=== PATIENT | female | born 1965 | race Caucasian/White ===

== ENCOUNTER 2019-05-18 11:50 | Outpatient (CLI) | payer OTHER, SELFPAY ==
--- NOTE | ~2019-05-18 | XR_ITS ---
EXAMINATION: XR foot RT min 3V DATE: 05/18/2019 12:13 INDICATION: Right foot bump and pain. TECHNIQUE: 4 views of right foot were obtained. COMPARISON: None. FINDINGS: Bone alignment is normal. No fracture. There is severe osteoarthritis of first tarsometatar sean joint and third proximal interphalangeal joint. There is mild osteoarthritis of many of the inter phalangeal joints and midfoot joints and first and second metatarsophalangeal joints. There are enthe sophytes at the posterior and plantar aspects of calcaneal tuberosity. IMPRESSION: 1. Polyarticular osteoarthritis. Reviewed, dictated and finalized at location A. TANKER CAPTAIN
== END 2019-05-18 11:51 | disposition home or self-care (01) ==
LOC: ANHIMG 11:56
PROVIDERS: PCP Family Medicine; Visit Provider Family Medicine
DX: M19.071 Primary osteoarthritis, right ankle and foot (principal)
CPT/HCPCS: 73630

== ENCOUNTER 2019-07-31 05:56 | Outpatient (CLI) | payer OTHER, SELFPAY ==
[2019-07-31 16:38] LABS: SARS-CoV-2 RNA PCR Negative
== END 2019-07-31 05:57 | disposition home or self-care (01) ==
LOC: ANHCOVIDDT 05:56
PROVIDERS: PCP Family Medicine; Visit Provider Internal Medicine Gastroenterology
DX: Z01.818 Encounter for other preprocedural examination (principal); Z11.59 Encounter for screening for other viral diseases
CPT/HCPCS: 87635; C9803; U0003

== ENCOUNTER 2019-08-02 00:45 | Day surgery (SDC) | payer OTHER, SELFPAY ==
[2019-07-29 12:25] VITALS: BMI 28.8
[2019-08-02 08:11] VITALS: BP 134/90; PULSE 72; RESP 16; TEMP 37.1; O2SAT 98
[2019-08-02] MEDS: LACTATED RINGERS 1,000 ML 150 ML IV CONT (08:23)
--- NOTE | 2019-08-02 09:00 | WPDANESEPPF ---
Anes - Initial Pre Proc Eval Procedure: Operation Date: 08/02/19 09:30 Proposed Procedures p Colonoscopy - Ayan Miguel MD Date/Time: 08/02/19 09:00 Surgeon: Ayan Miguel MD Pre Op Diagnosis: Blood In Stool Patient Data Age: 53 Gender: F Height: 5 ft 4 in Weight: 72.9 kg Last Vital Signs Temp 37.1 C 08/02/19 08:11 Pulse 72 08/02/19 08:11 Resp 16 08/02/19 08:11 BP 134/90 08/02/19 08:11 Pulse Ox 98 08/02/19 08:11 Allergies Allergy/AdvReac Type Severity Reaction Status Date / Time codeine Allergy Unknown Nausea Verified 08/02/19 08:10 Home Medications Medication Instructions Recorded Confirmed Type nebivolol 5 mg tablet 5 mg PO DAILY #90 tablet 04/01/19 08/02/19 Rx pantoprazole 40 mg tablet,delayed 40 mg PO QAM #90 tablet 05/09/19 08/02/19 Rx release levothyroxine 137 mcg tablet 137 mcg PO DAILY 05/14/19 08/02/19 History celecoxib 200 mg capsule 200 mg PO BID #60 cap 05/16/19 08/02/19 Rx gabapentin 300 mg capsule 300 mg PO TID #90 cap 05/16/19 08/02/19 Rx albuterol sulfate 2.5 mg INHALATION Q4-6H PRN #180 ml 05/21/19 08/02/19 Rx calcium carbonate [Calcium 600] 600 mg PO BID 07/29/19 08/02/19 History cyanocobalamin (vitamin B-12) 500 mcg PO DAILY 07/29/19 08/02/19 History [Vitamin B-12] garlic 1,000 mg PO DAILY 07/29/19 08/02/19 History lactobacillus combination no.8 3,000 mmu cells PO DAILY 07/29/19 08/02/19 History [Adult Probiotic] melatonin 5 mg PO HS PRN 07/29/19 08/02/19 History multivitamin [Daily Multi-Vitamin] 1 tablet PO DAILY 07/29/19 08/02/19 History phentermine 37.5 mg PO DAILY 07/29/19 08/02/19 History zolpidem 5 mg PO ONCE 07/29/19 08/02/19 History Patient hx anesthesia problems: none Family hx anesthesia problems: none PMFSH Past Medical History Medical History Foot arthropathy Family History Family History Other Diabetes mellitus Family history of Alzheimer's disease Family history of chronic obstructive pulmonary disease Family history of malignant neoplasm of bone Family history of malignant neoplasm of breast Hypertension Social History Social History Smoking status: Never smoker Alcohol intake: never Anes - Eval Final PreProcedure Day of Procedure 08/02/19 09:00 Patient weight: overweight Heart: regular rate and rhythm Airway: Mallampati scale class II Neurological: alert and oriented Last oral intake: >/= 8 hours ASA classification: III Emergent: no Anesthetic plan: proceed Anesthesia type and monitoring: general GIVS and standard monitoring Informed Consent: The patient's anesthetic plan and its attendant risks and benefits were discussed with the patient/family/POA. Questions were solicited and answers provided to the satisfaction of the patient/family/POA.
--- NOTE | 2019-08-02 09:15 | P.HP_ITS ---
History of Present Illness History of Present Illness Consent: Risks, benefits, and alternatives have been discussed and questions answered. Patient agrees to proceed with procedure. Chief complaint: Blood In Stool Narrative: Giovana Woods is a 53 year old female Who has been passing blood in her stools for the past 6 weeks. Initially she was constipated, but now using stool softeners and or MiraLax, she has soft stools but still sees blood. [facility] Past Medical History Medical History Foot arthropathy Family History Family History Other Diabetes mellitus Family history of Alzheimer's disease Family history of chronic obstructive pulmonary disease Family history of malignant neoplasm of bone Family history of malignant neoplasm of breast Hypertension Social History Social History Smoking status: Never smoker Alcohol intake: never Meds Home Medications and Allergies Home Medications Medication Instructions Recorded Confirmed Type nebivolol 5 mg tablet 5 mg PO DAILY #90 tablet 04/01/19 08/02/19 Rx pantoprazole 40 mg tablet,delayed 40 mg PO QAM #90 tablet 05/09/19 08/02/19 Rx release levothyroxine 137 mcg tablet 137 mcg PO DAILY 05/14/19 08/02/19 History celecoxib 200 mg capsule 200 mg PO BID #60 cap 05/16/19 08/02/19 Rx gabapentin 300 mg capsule 300 mg PO TID #90 cap 05/16/19 08/02/19 Rx albuterol sulfate 2.5 mg INHALATION Q4-6H PRN #180 ml 05/21/19 08/02/19 Rx calcium carbonate [Calcium 600] 600 mg PO BID 07/29/19 08/02/19 History cyanocobalamin (vitamin B-12) 500 mcg PO DAILY 07/29/19 08/02/19 History [Vitamin B-12] garlic 1,000 mg PO DAILY 07/29/19 08/02/19 History lactobacillus combination no.8 3,000 mmu cells PO DAILY 07/29/19 08/02/19 History [Adult Probiotic] melatonin 5 mg PO HS PRN 07/29/19 08/02/19 History multivitamin [Daily Multi-Vitamin] 1 tablet PO DAILY 07/29/19 08/02/19 History phentermine 37.5 mg PO DAILY 07/29/19 08/02/19 History zolpidem 5 mg PO ONCE 07/29/19 08/02/19 History Allergies Allergy/AdvReac Type Severity Reaction Status Date / Time codeine Allergy Unknown Nausea Verified 08/02/19 08:10 Vital Signs Vital Signs - 24 hr 08/02/19 08:11 Temperature 37.1 C Pulse Rate 72 Respiratory Rate 16 Blood Pressure 134/90 Pulse Oximetry 98 Exam Resp: Auscultation: clear to auscultation bilaterally Cardio: Rate: regular rate Rhythm: regular rhythm GI: GI Palp: Yes Soft to palpation and No Tenderness to palpation present (GI) Assessment and Plan Assessment and plan (1) Blood in stool: Code(s): K92.1 - Melena Status: Acute Assessment and Plan: Colonoscopy with possible biopsy or polypectomy or cautery or injection of substances.
[2019-08-02 09:46] VITALS: BP 122/73; PULSE 70; RESP 22; O2SAT 99
[2019-08-02 09:56] VITALS: BP 102/65; PULSE 60; RESP 22; O2SAT 100
[2019-08-02 10:06] VITALS: BP 107/67; PULSE 60; RESP 22; O2SAT 100
== END 2019-08-02 10:30 | disposition home or self-care (01) ==
PROVIDERS: PCP Family Medicine; Visit Provider Internal Medicine Gastroenterology
PROC: 0DJD8ZZ Inspection of Lower Intestinal Tract, Via Natural or Artificial Opening Endoscopic (ICD-10-PCS; CPT 45378; principal; 2019-08-02 09:30)
DX: K62.5 Hemorrhage of anus and rectum (principal); K64.8 Other hemorrhoids
CPT/HCPCS: 45378; J2704; J7120

== ENCOUNTER 2019-08-13 14:54 | Outpatient (CLI) | payer OTHER, SELFPAY ==
[2019-08-13 16:14] LABS: Thyroid Stimulating Hormone < 0.015 uIU/mL (0.465-4.680)
[2019-08-13 19:28] LABS: Free T4 Free Thyroxine 2.11 ng/mL (0.78-2.19); Vitamin D 25 Hydroxy 84.7 ng/mL
== END 2019-08-13 14:55 | disposition home or self-care (01) ==
PROVIDERS: PCP Family Medicine; Visit Provider Internal Medicine Endocrinology, Diabetes & Metabolism
DX: E03.9 Hypothyroidism, unspecified (principal); R79.89 Other specified abnormal findings of blood chemistry
CPT/HCPCS: 36415; 82306; 84439; 84443

== ENCOUNTER 2019-11-01 08:47 | Outpatient (CLI) | payer OTHER, SELFPAY ==
[2019-11-01 09:20] LABS: Hematocrit 40.8 % (37.0-47.0); Hemoglobin 13.2 g/dL (12.0-15.0); Mean Corpuscular HGB Conc 32.4 g/dl (32-36); Mean Corpuscular Hemoglobin 29.5 pg (26-34); Mean Corpuscular Volume 91.3 fl (80-100); Mean Platelet Volume 10.9 fl (7.4-10.4); Platelet Count Result 226 k/mm3 (150-375); Red Blood Count 4.47 M/mm3 (4.2-5.4); White Blood Count 6.2 K/mm3 (4.5-10.0)
[2019-11-01 09:32] LABS: Alanine Aminotransferase 14 U/L (4-35); Albumin Level 3.8 g/dL (3.5-5.1); Alkaline Phosphatase 88 U/L (38-126); Anion Gap 5 mmol/L (8-16); Aspartate Amino Transferase 23 U/L (14-36); Bilirubin,Total 0.5 mg/dL (0.2-1.3); Blood Urea Nitrogen 12 mg/dL (7-17); Calcium 8.8 mg/dL (8.4-10.2); Carbon Dioxide 28 mmol/L (22-30); Chloride 106 mmol/L (98-107); Cholesterol 179 mg/dL (0-200); Estimated Glomerular Filt Rate > 60; Glucose 93 mg/dL (65-105); HDL Direct 49 mg/dL; Potassium 4.2 mmol/L (3.4-5.0); Sodium 139 mmol/L (137-145); Triglycerides 44 mg/dL (<150)
[2019-11-01 09:42] LABS: LDL Cholesterol Direct 98 mg/dL
== END 2019-11-01 08:48 | disposition home or self-care (01) ==
PROVIDERS: PCP Family Medicine; Visit Provider Physician Assistant Medical
DX: I10 Essential (primary) hypertension (principal); Z13.220 Encounter for screening for lipoid disorders
CPT/HCPCS: 36415; 80053; 80061; 85027

== ENCOUNTER 2019-12-28 11:16 | Outpatient (CLI) | payer OTHER, SELFPAY ==
[2019-12-28 12:25] LABS: Alanine Aminotransferase 13 U/L (4-35)
== END 2019-12-28 11:17 | disposition home or self-care (01) ==
PROVIDERS: PCP Family Medicine; Visit Provider Physician Assistant Medical
DX: B35.1 Tinea unguium (principal)
CPT/HCPCS: 36415; 84460

== ENCOUNTER 2020-01-23 06:51 | Outpatient (NON) | payer OTHER, SELFPAY ==
[2020-01-23 17:23] LABS: SARS-CoV-2 RNA PCR Positive
== END 2020-01-23 06:52 ==
LOC: ANHCOVIDDT 07:00
PROVIDERS: PCP Family Medicine; Visit Provider Nurse Practitioner Family
DX: U07.1 COVID-19 (principal)
CPT/HCPCS: 87635; C9803; U0003

== ENCOUNTER 2020-02-17 14:18 | Outpatient (CLI) | payer OTHER, SELFPAY ==
--- NOTE | ~2020-02-17 | XR_ITS ---
EXAMINATION: XR chest 2V EXAM DATE: 02/17/2020 14:17 INDICATION: U07.1 - COVID-19. Cough and shortness of breath with exertion. TECHNIQUE: Frontal and lateral projections of the chest obtained and reviewed. Comparison is made to prior examination from 03/25/2016. FINDINGS: The lungs are clear. There are no pleural effusions. The cardiomediastinal silhouette is within normal limits. There is no pneumothorax suspected. Mild thoracic spondylosis. IMPRESSION: No acute cardiopulmonary findings. Reviewed, dictated and finalized at location A. K CATCHER
[2020-02-17 14:59] LABS: Basophils Percent Auto 0.8 % (0.2-1.2); Eosinophils Absolute Auto 0.1 K/mm3 (0-0.3); Eosinophils Percent Auto 2.3 % (0-4.4); Hematocrit 37.9 % (37.0-47.0); Hemoglobin 12.1 g/dL (12.0-15.0); Immature Granulocyte Absolute 0.02 K/mm3 (0.00-0.031); Immature Granulocyte Percent A 0.4 % (0-0.5); Lymphocytes Absolute Auto 1.97 K/mm3 (0.9-3.2); Lymphocytes Percent Auto 38.2 % (18.3-44.2); Mean Corpuscular HGB Conc 31.9 g/dl (32-36); Mean Corpuscular Hemoglobin 29.5 pg (26-34); Mean Corpuscular Volume 92.4 fl (80-100); Mean Platelet Volume 10.8 fl (7.4-10.4); Monocytes Absolute Auto 0.5 K/mm3 (0.1-0.6); Monocytes Percent Auto 10.5 % (2.6-8.5); Neutrophils Absolute Auto 2.5 K/mm3 (1.3-6.7); Neutrophils Percent Auto 47.8 % (45.5-73.1); Platelet Count Result 231 k/mm3 (150-375); Red Cell Distribution Width 13.6 % (11.5-14.5); White Blood Count 5.2 K/mm3 (4.5-10.0)
[2020-02-17 15:08] LABS: Potassium 4.5 mmol/L (3.4-5.0)
[2020-02-17 15:10] LABS: D Dimer 0.38 ug/mL (<0.48)
[2020-02-17 15:20] LABS: Anion Gap 4 mmol/L (8-16); Blood Urea Nitrogen 13 mg/dL (7-17); CRP < 0.5 mg/dL (<1.0); Carbon Dioxide 30 mmol/L (22-30); Chloride 106 mmol/L (98-107); Estimated Glomerular Filt Rate > 60; Glucose 87 mg/dL (65-105); Lactate Dehydrogenase 445 U/L (313-618); Sodium 140 mmol/L (137-145)
== END 2020-02-17 14:19 | disposition home or self-care (01) ==
PROVIDERS: PCP Family Medicine; Visit Provider Physician Assistant Medical
DX: R05 Cough (principal); R06.02 Shortness of breath
CPT/HCPCS: 36415; 71046; 80048; 83615; 85025; 85380; 86140

== ENCOUNTER 2020-03-06 14:46 | Outpatient (CLI) | payer OTHER, SELFPAY ==
[2020-03-06 16:06] LABS: Free T4 Free Thyroxine 1.13 ng/mL (0.78-2.19)
[2020-03-10 13:50] LABS: Triiodothyronine T3 Free 1.9 pg/mL (2.3-4.2)
== END 2020-03-06 14:47 | disposition home or self-care (01) ==
PROVIDERS: PCP Family Medicine; Visit Provider Internal Medicine Endocrinology, Diabetes & Metabolism
DX: E03.9 Hypothyroidism, unspecified (principal)
CPT/HCPCS: 36415; 84439; 84443; 84481

== ENCOUNTER 2020-05-23 07:39 | Outpatient (CLI) | payer OTHER, SELFPAY ==
[2020-05-23 09:02] LABS: Alanine Aminotransferase 14 U/L (4-35); Alkaline Phosphatase 74 U/L (38-126); Aspartate Amino Transferase 24 U/L (14-36); Bilirubin,Total 0.4 mg/dL (0.2-1.3)
== END 2020-05-23 07:40 | disposition home or self-care (01) ==
PROVIDERS: PCP Family Medicine
DX: B35.1 Tinea unguium (principal)
CPT/HCPCS: 36415; 80076

== ENCOUNTER 2020-08-22 08:27 | Outpatient (CLI) | payer OTHER, SELFPAY ==
[2020-08-22 10:38] LABS: Free T4 Free Thyroxine 1.45 ng/mL (0.78-2.19); Vitamin D 25 Hydroxy 89.6 ng/mL
[2020-08-27 21:09] LABS: Triiodothyronine T3 Free 2.7 pg/mL (2.3-4.2)
== END 2020-08-22 08:28 | disposition home or self-care (01) ==
PROVIDERS: PCP Family Medicine; Visit Provider Internal Medicine Endocrinology, Diabetes & Metabolism
DX: E03.9 Hypothyroidism, unspecified (principal); R79.89 Other specified abnormal findings of blood chemistry
CPT/HCPCS: 36415; 82306; 84439; 84443; 84481

== ENCOUNTER 2021-02-03 15:36 | Outpatient (CLI) | payer OTHER, SELFPAY ==
--- NOTE | ~2021-02-03 | XR_ITS ---
EXAMINATION: XR lumbar spine 2-3V DATE: 02/03/2021 16:02 INDICATION: Lumbago with sciatica and 1 month of pain radiating to the right hip and leg TECHNIQUE: Anteroposterior and lateral views of the lumbar spine, and cone-down lateral view of the l umbosacral junction were obtained. COMPARISON: None. FINDINGS: 6 mm anterolisthesis L4 on L5. Vertebral body heights are normal. Mild disc height loss at L1-L2 thro ugh L4-L5. Moderate to severe lower lumbar facet osteoarthritis most prominent at L4-L5. Mild bilater al sacroiliac osteoarthritis. Surgical clips in the right hemipelvis. The visualized lung bases are c lear. IMPRESSION: 1. Lumbar spondylosis most notable for 6 mm anterolisthesis L4 on L5 with severe bilateral facet oste oarthritis. Reviewed, dictated and finalized at location A. IGN COLLECTION CLERK IMPRESSION: 1. Lumbar spondylosis most notable for 6 mm anterolisthesis L4 on L5 with sever e bilateral facet osteoarthritis.
== END 2021-02-03 15:37 | disposition home or self-care (01) ==
LOC: ANHIMG 15:39
PROVIDERS: PCP Family Medicine; Visit Provider Nurse Practitioner Family
DX: M54.41 Lumbago with sciatica, right side (principal); M47.816 Spondylosis without myelopathy or radiculopathy, lumbar region
CPT/HCPCS: 72100

== ENCOUNTER → 2021-03-26 07:58 | Outpatient (CLI) | payer OTHER, SELFPAY ==
--- NOTE | ~2021-03-26 | MR_ITS ---
EXAMINATION: MR lumbar spine wo con DATE: 03/26/2021 08:53 INDICATION: Lumbago with right-sided sciatica TECHNIQUE: Magnetic resonance imaging (MRI) of the lumbar spine was performed without intravenous con trast. Sequences included sagittal T2-weighted FSE, sagittal T2-weighted FS FSE, sagittal T1-weighted FSE, and axial T2-weighted FSE. COMPARISON: Lumbar spine radiographs dated 02/03/2021 FINDINGS: 4 mm anterolisthesis L4 on L5. Vertebral body heights are normal. Normal marrow signal. Moderate dis c height loss at L1-L2, mild to moderate disc height loss at 5 and mild disc height loss at T10-T11, L2-L3 and L3-L4. The conus medullaris terminates at L3. No thickening of the following terminally. Th ere is normal signal in the caudal spinal cord. Paravertebral soft tissues are unremarkable. The foll owing disc levels are specifically discussed: T12-L1: The disc does not extend beyond the endplate margin. There is mild bilateral facet joint oste oarthritis. There is no neural foraminal stenosis. There is no central canal stenosis. L1-L2: Disc is bulging with annular fissure. There is mild left and moderate right facet joint osteoa rthritis. There is mild bilateral neural foraminal stenosis. There is mild central canal stenosis. L2-L3: Disc is bulging. There is mild bilateral facet joint osteoarthritis. There is mild bilateral n eural foraminal stenosis. There is mild central canal stenosis. L3-L4: Disc is mildly bulging. There is moderate bilateral facet joint osteoarthritis. There is mild bilateral neural foraminal stenosis. There is minimal central canal stenosis. L4-L5: Disc is bulging. There is severe bilateral facet joint osteoarthritis. There is mild bilateral neural foraminal stenosis. There is mild central canal stenosis. L5-S1: The disc does not extend beyond the endplate margin. There is moderate bilateral facet joint o steoarthritis. There is mild bilateral neural foraminal stenosis. There is no central canal stenosis. IMPRESSION: 1. Mild to moderate lumbar spondylosis and 4 mm anterolisthesis L4 on L5. Reviewed, dictated and finalized at location B. RNS PROCESSOR
--- NOTE | ~2021-03-26 | XR_ITS ---
EXAMINATION: XR hip RT min 2V DATE: 03/26/2021 09:14 INDICATION: Right hip pain. TECHNIQUE: 2 views of right hip were obtained. COMPARISON: None. FINDINGS: Bone alignment is normal. No fracture. There is mild right hip osteoarthritis. Osteitis pub is is noted. Surgical clips overlie the sacrum. IMPRESSION: 1. Mild right hip osteoarthritis. Reviewed, dictated and finalized at location A. RACTS OFFICER
== END ==
PROVIDERS: PCP Family Medicine; Visit Provider Nurse Practitioner Family
DX: M47.815 Spondylosis without myelopathy or radiculopathy, thoracolumbar region (principal); M48.05 Spinal stenosis, thoracolumbar region; M47.817 Spondylosis without myelopathy or radiculopathy, lumbosacral region; M48.07 Spinal stenosis, lumbosacral region; M16.11 Unilateral primary osteoarthritis, right hip
CPT/HCPCS: 72148; 73502

== ENCOUNTER 2021-09-18 07:09 | Outpatient (CLI) | payer OTHER, SELFPAY ==
[2021-09-18 07:54] LABS: Hematocrit 41.6 % (37.0-47.0); Hemoglobin 13.3 g/dL (12.0-15.0); Mean Corpuscular Hemoglobin 28.9 pg (26-34); Mean Corpuscular Volume 90.2 fl (80-100); Mean Platelet Volume 10.3 fl (7.4-10.4); Platelet Count Result 245 k/mm3 (150-375); Red Blood Count 4.61 M/mm3 (4.2-5.4); Red Cell Distribution Width 13.3 % (11.5-14.5); White Blood Count 6.2 K/mm3 (4.5-10.0)
[2021-09-18 08:07] LABS: Alanine Aminotransferase 19 U/L (6-35); Albumin Level 4.2 g/dL (3.5-5.1); Alkaline Phosphatase 129 U/L (38-126); Anion Gap 4 mmol/L (8-16); Aspartate Amino Transferase 27 U/L (14-36); Bilirubin,Total 0.5 mg/dL (0.2-1.3); Blood Urea Nitrogen 13 mg/dL (7-17); Carbon Dioxide 29 mmol/L (22-30); Chloride 107 mmol/L (98-107); Cholesterol 215 mg/dL (0-200); Estimated Glomerular Filt Rate > 60; Glucose 96 mg/dL (65-110); HDL Direct 61 mg/dL; Potassium 4.3 mmol/L (3.4-5.0); Sodium 140 mmol/L (137-145); Triglycerides 38 mg/dL (<150)
[2021-09-18 08:18] LABS: LDL Cholesterol Direct 102 mg/dL
[2021-09-18 08:37] LABS: Thyroid Stimulating Hormone 0.115 uIU/mL (0.465-4.680)
[2021-09-18 09:28] LABS: Free T4 Free Thyroxine 1.84 ng/mL (0.78-2.19)
== END 2021-09-18 07:10 | disposition home or self-care (01) ==
LOC: ANHLAB 07:11
PROVIDERS: PCP Family Medicine; Visit Provider Nurse Practitioner Family
DX: E55.9 Vitamin D deficiency, unspecified (principal); R23.8 Other skin changes; I10 Essential (primary) hypertension; Z13.1 Encounter for screening for diabetes mellitus; Z13.220 Encounter for screening for lipoid disorders; E03.9 Hypothyroidism, unspecified
CPT/HCPCS: 36415; 80053; 80061; 82306; 84439; 84443; 85027

== ENCOUNTER → 2021-10-25 11:21 | Outpatient (CLI) | payer OTHER, SELFPAY ==
--- NOTE | ~2021-10-25 | XR_ITS ---
XR ribs BI 3V w CXR 2V DATE: 10/25/2021 12:13 INDICATION: Cough. Mid back pain. No injury. TECHNIQUE: PA and lateral views. 3 views of right ribs. 3 views of left ribs. COMPARISON: 02/17/2020 PA and lateral chest FINDINGS: Normal heart size. Mild aortic tortuosity. No hilar or mediastinal enlargement. No pulmonary infiltrate or consolidation, pleural effusion or pulmonary vascular congestion or pneumo thorax is detected. No left or right rib fracture is detected. IMPRESSION: No detected right or left rib fracture No active cardiopulmonary disease Reviewed, dictated and finalized at location B.
--- NOTE | ~2021-10-25 | XR_ITS ---
XR thoracic spine 3V DATE: 10/25/2021 12:13 INDICATION: Back pain TECHNIQUE: AP, lateral, swimmer views COMPARISON: None FINDINGS: Osteopenia. There is degenerative spurring in the mid and lower thoracic spine primarily. N ormal alignment of the thoracic spine. No fracture or bone destruction is evident. The thoracic pedic les are intact. No paraspinal soft tissue thickening. IMPRESSION: Osteopenia Degenerative spurring Reviewed, dictated and finalized at location B.
== END ==
PROVIDERS: PCP Family Medicine; Visit Provider Nurse Practitioner Family
DX: M54.9 Dorsalgia, unspecified (principal); R05.9 Cough, unspecified; M85.88 Other specified disorders of bone density and structure, other site; M77.8 Other enthesopathies, not elsewhere classified
CPT/HCPCS: 71046; 71110; 72072

== ENCOUNTER → 2021-11-03 09:02 | Outpatient (CLI) | payer OTHER, SELFPAY ==
--- NOTE | ~2021-11-03 | MR_ITS ---
EXAMINATION: MR thoracic spine wo con DATE: 11/03/2021 09:42 INDICATION: Mid back pain. TECHNIQUE: Magnetic resonance imaging (MRI) of the thoracic spine was performed without intravenous c ontrast. Sagittal localizer T1-weighted FSE of the cervical spine was obtained. Thoracic spine sequen jo included sagittal T2-weighted FSE, sagittal T1-weighted FSE, sagittal T2-weighted FS FSE, and axi al T2-weighted FSE. COMPARISON: Thoracic spine radiographs 10/25/2021 FINDINGS: Bone alignment is normal in thoracic spine. There is mild chronic anterior wedging of T6-T9 vertebral bodies. There is mildly decreased disc height at multiple levels. There is moderately decr eased disc height at T6-T7, T8-T9, and T9-T10. There is multilevel mild facet joint osteoarthritis. O n the right, there is mild neural foraminal stenosis at T1-T2, T8-T9, and T10-T11. On the left, there is mild neural foraminal stenosis at T1-T2, T9-T10, and T10-T11. The discs are bulging from T6-T7 th rough T10-T11 with mild central canal stenosis. The spinal cord signal intensity is normal. IMPRESSION: 1. Moderate thoracic spondylosis. Reviewed, dictated and finalized at location A.
== END ==
PROVIDERS: PCP Family Medicine; Visit Provider Nurse Practitioner Family
DX: M54.6 Pain in thoracic spine (principal); M47.814 Spondylosis without myelopathy or radiculopathy, thoracic region
CPT/HCPCS: 72146

== ENCOUNTER 2022-05-22 08:02 | Emergency (ER) | payer OTHER, SELFPAY ==
--- NOTE | 2022-05-22 08:10 | ED.WOUNDLAC ---
HPI - Wound/Laceration General Chief Complaint: Extremity Injury, Upper Stated Complaint: lt thumb laceration Time Seen by Provider: 05/22/22 08:11 Source: patient Mode of arrival: ambulatory Limitations: no limitations History of Present Illness HPI narrative: Giovana is a 56-year-old female patient presenting to the clinic today with complaints of a left thumb laceration. She reports she was cutting an onion this morning of 430 and cut her left distal medial thumb. Bleeding is controlled. She attempted to put new skin on it to stop the bleeding. Tetanus unknown Related Data Home Medications Medication Instructions Recorded Confirmed calcium carbonate 600 mg calcium 600 mg PO BID 07/29/19 05/22/22 (1,500 mg) tablet (Calcium) cyanocobalamin (vitamin B-12) 500 500 mcg PO DAILY 07/29/19 05/22/22 mcg tablet (Vitamin B-12) garlic 1,000 mg capsule 1,000 mg PO DAILY 07/29/19 05/22/22 lactobacillus combination no.8 3 3,000 mmu cells PO DAILY 07/29/19 05/22/22 billion cell capsule (Adult Probiotic) melatonin 5 mg tablet 5 mg PO HS PRN sleep 07/29/19 05/22/22 multivitamin (Daily Multi-Vitamin 1 tablet PO DAILY 07/29/19 05/22/22 tablet) Allergies Allergy/AdvReac Type Severity Reaction Status Date / Time codeine Allergy Unknown Nausea Verified 05/22/22 08:17 Review of Systems Review of Systems: Pertinent positives per HPI. Patient denies any fever, chills, rash, headache, visual changes, dizziness, cough, runny nose, sore throat, shortness of breath, chest pain, palpitations, nausea, vomiting, diarrhea, constipation, abdominal pain, or any urinary issues. [facility] Past Medical History Medical History Abnormal MRI, lumbar spine Adult BMI 34.0-34.9 kg/sq m Arthritis of carpometacarpal (CMC) joint of both thumbs BMI 28.0-28.9,adult BMI 30.0-30.9,adult BMI 31.0-31.9,adult BMI 35.0-35.9,adult Foot arthropathy Nail fungus Family History Family History Father COPD (chronic obstructive pulmonary disease) CHF (congestive heart failure) Tobacco abuse Mother Primary cancer of bone marrow Sibling Diabetes mellitus Other Family history of Alzheimer's disease Family history of chronic obstructive pulmonary disease Family history of malignant neoplasm of bone Family history of malignant neoplasm of breast Hypertension Social History Social History Smoking status: Never smoker Second hand tobacco smoke exposure: Yes Alcohol intake: never Substance use: never Substance use type: does not use Living arrangements: with family Occupation/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 There is no relevant family history pertinent to the patient complaint. Exam Narrative: General: Well-developed, well nourished, in no apparent distress Head: Normocephalic, atraumatic. Cardio: Regular rate and rhythm, s1 and s2 normal, no murmur appreciated. Resp: Clear to auscultation bilaterally, no rhonchi, rales, wheezing or rubs. Integumentary: Dortches, warm, and dry, 1 cm flap-like laceration to the left distal medial thumb. Bleeding controlled Course Course Emergency Course: Portions of this record may have been created with voice recognition software. Level of Care: Express Care Visit Vital Signs Vital signs: Vital Signs Temperature 36.6 C 05/22/22 08:19 Pulse Rate 67 05/22/22 08:19 Respiratory Rate 18 05/22/22 08:19 Blood Pressure 125/81 05/22/22 08:19 Pulse Oximetry 99 05/22/22 08:19 Oxygen Delivery Room Air 05/22/22 08:19 Matthews
[2022-05-22 08:19] VITALS: BP 125/81; PULSE 67; RESP 18; TEMP 36.6; O2SAT 99
[2022-05-22 08:34] VITALS: BP 125/81; PULSE 67; RESP 18; TEMP 36.6; O2SAT 99
[2022-05-22] MEDS: TETANUS,DIPHTHERIA,AC PERTUSSIS ADULT (0.5 ML) BOOSTRIX IM (08:46)
== END 2022-05-22 08:45 | disposition home or self-care (01) ==
PROVIDERS: Emergency Provider Nurse Practitioner Family; PCP Family Medicine
DX: S61.012A Laceration without foreign body of left thumb without damage to nail, initial encounter (principal); Z23 Encounter for immunization; W45.8XXA Other foreign body or object entering through skin, initial encounter
CPT/HCPCS: 12001; 90471; 90715; 99212; G0463

== ENCOUNTER 2022-05-24 13:17 | Outpatient (CLI) | payer OTHER, SELFPAY ==
--- NOTE | 2022-05-24 13:42 | ECG_ITS ---
Measurements Intervals [place] Rate: 56 P: 49 DC: 163 QRS: 6 QRSD: 93 T: 10 QT: 403 QTc: 389 Interpretive Statements SINUS BRADYCARDIA CONSIDER INFERIOR INFARCT, AGE INDETERMINATE BASELINE ARTIFACT- I, II, III, AVR, AVL ABNORMAL ECG NO PREVIOUS ECG AVAILABLE FOR COMPARISON Electronically Signed On 05-24-2022 16:30:46 MANAGER TRACK by Hari Gomez D.O.
[2022-05-24 14:20] LABS: Anion Gap 4 mmol/L (8-16); Blood Urea Nitrogen 14 mg/dL (7-17); Calcium 9.2 mg/dL (8.4-10.2); Carbon Dioxide 30 mmol/L (22-30); Chloride 102 mmol/L (98-107); Estimated Glomerular Filt Rate > 60; Glucose 89 mg/dL (65-110); Potassium 4.3 mmol/L (3.4-5.0); Sodium 136 mmol/L (137-145)
== END 2022-05-24 13:18 | disposition home or self-care (01) ==
LOC: ANHSURGERY 13:21
PROVIDERS: Anesthesiology; PCP Family Medicine; Visit Provider Orthopaedic Surgery
DX: R73.03 Prediabetes (principal); I10 Essential (primary) hypertension; R00.1 Bradycardia, unspecified; R94.31 Abnormal electrocardiogram [ECG] [EKG]
CPT/HCPCS: 36415; 80048; 93005

== ENCOUNTER 2022-05-29 10:43 | Emergency (ER) | payer OTHER, SELFPAY ==
--- NOTE | ~2022-05-29 | XR_ITS ---
EXAMINATION: XR knee LT min 4V DATE: 05/29/2022 11:25 INDICATION: Medial left knee pain post fall TECHNIQUE: Anteroposterior, 2 oblique and crosstable lateral views of the left knee were obtained COMPARISON: None. FINDINGS: Alignment is normal. No fracture. Is at least mild tricompartmental osteoarthritis with mild joint sp joselin narrowing in the medial lateral compartments which could be underestimated on nonweightbearing im aging and small marginal osteophytes along the patella. No joint effusion/layering lipohemarthrosis. Soft tissues are unremarkable. IMPRESSION: 1. Mild tricompartmental osteoarthritis at the right knee. No joint effusion or acute osseous abnorma lity. Reviewed, dictated and finalized at location A. IMPRESSION: 1. Mild tricompartmental osteoarthritis at the right knee. No joint effusion or acute osseous abnormality.
[2022-05-29 11:11] VITALS: BP 126/64; PULSE 54; RESP 20; TEMP 36.1; O2SAT 100
--- NOTE | 2022-05-29 11:20 | ED.GENADULT ---
HPI - General Adult General Chief complaint: Extremity Injury, Lower Stated complaint: fall Time Seen by Provider: 05/29/22 11:22 Source: patient Mode of arrival: ambulatory Limitations: no limitations History of Present Illness HPI narrative: 56-year-old female patient presents to the [facility] with complaints of left knee pain. Patient states this morning her 10-week-old puppy Peed on the hardwood floor and she slipped and twisted her left knee. Patient states she has been having pain with ambulation and tenderness to the touch. Denies taking anything for pain prior to arrival. Patient states she is scheduled to have surgery on her right hand tomorrow. Patient denies hitting her head or loss of consciousness Related Data Home Medications Medication Instructions Recorded Confirmed calcium carbonate 600 mg calcium 600 mg PO BID 07/29/19 05/24/22 (1,500 mg) tablet (Calcium) cyanocobalamin (vitamin B-12) 500 500 mcg PO DAILY 07/29/19 05/24/22 mcg tablet (Vitamin B-12) garlic 1,000 mg capsule 1,000 mg PO DAILY 07/29/19 05/24/22 lactobacillus combination no.8 3 3,000 mmu cells PO DAILY 07/29/19 05/24/22 billion cell capsule (Adult Probiotic) melatonin 5 mg tablet 5 mg PO HS PRN sleep 07/29/19 05/24/22 multivitamin (Daily Multi-Vitamin 1 tablet PO DAILY 07/29/19 05/24/22 tablet) famotidine 40 mg tablet 40 mg PO HS 05/23/22 05/24/22 phentermine 37.5 mg tablet 37.5 mg PO DAILY 05/23/22 05/24/22 semaglutide 3 mg tablet (Rybelsus) 3 mg PO DAILY 05/23/22 05/24/22 Allergies Allergy/AdvReac Type Severity Reaction Status Date / Time codeine AdvReac Mild Nausea Verified 05/29/22 11:06 Review of Systems Review of Systems: CONSTITUTIONAL: Denies fever, chills, or sweats. EYES: Denies visual changes, redness, or discharge. ENT: Denies rhinorrhea, congestion, sore throat, or otalgia. CARDIOVASCULAR: Denies chest pain, palpitations, or edema. RESPIRATORY: Denies cough or dyspnea. GASTROINTESTINAL: Denies abdominal pain, nausea, vomiting, or diarrhea. GENITOURINARY: Denies dysuria or hematuria. SKIN: Denies rash or itching. MUSCULOSKELETAL: Denies back pain, joint pain, or myalgia. positive left knee pain NEUROLOGIC: Denies headache, numbness, or weakness. PSYCHIATRIC: Denies anxiety or depression. [facility] Past Medical History Medical History (Updated 05/29/22 @ 11:47 by DELON Kruger) Abnormal MRI, lumbar spine Adult BMI 34.0-34.9 kg/sq m Arthritis of carpometacarpal (CMC) joint of both thumbs Asthma BMI 28.0-28.9,adult BMI 30.0-30.9,adult BMI 31.0-31.9,adult BMI 35.0-35.9,adult Bronchitis COVID-19 Essential (primary) hypertension Foot arthropathy Hypercholesteremia Hypothyroidism Low back pain with right-sided sciatica Migraines Nail fungus Primary osteoarthritis involving multiple joints Vitamin D deficiency Surgical History Surgical History (Updated 05/29/22 @ 11:25 by DELON Kruger) H/O: hysterectomy History of tubal ligation Hx of cholecystectomy Family History Family History Father COPD (chronic obstructive pulmonary disease) CHF (congestive heart failure) Tobacco abuse Mother Primary cancer of bone marrow Sibling Diabetes mellitus Other Family history of Alzheimer's disease Family history of chronic obstructive pulmonary disease Family history of malignant neoplasm of bone Family history of malignant neoplasm of breast Hypertension Social History Social History Smoking status: Never smoker Second hand tobacco smoke exposure: Yes Alcohol intake: never Substance use: never Substance use type: does not use Living arrangements: with family Occupation/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
== END 2022-05-29 11:49 | disposition home or self-care (01) ==
PROVIDERS: Emergency Provider Nurse Practitioner Family; PCP Family Medicine
DX: S83.92XA Sprain of unspecified site of left knee, initial encounter (principal); E03.9 Hypothyroidism, unspecified; I10 Essential (primary) hypertension; W01.0XXA Fall on same level from slipping, tripping and stumbling without subsequent striking against object, initial encounter
CPT/HCPCS: 73564; 99213; G0463

== ENCOUNTER 2022-05-30 00:24 | Day surgery (SDC) | payer OTHER, SELFPAY ==
--- NOTE | 2022-05-23 14:53 | PC.NURSE ---
Report to the Outpatient Waiting Room, entrance under the green pavilion located off [facility], at time 6:00 on date 05/30/22. Planned Procedure Time: 7:30. Time changes happen often and if your time is changed the preop area will call you the afternoon before. - You and your visitor will be asked to self-screen and do not enter if you have any COVID symptoms. - Only one visitor is requested with a max of two and NO children visitors are allowed at this time. - The patient visitor may be requested to leave or wait in car when not with patient due to distancing restrictions. - A mask is optional within the hospital at this time. Patients may have clear liquids (water, carbonated beverages, clear teas, apple juice) until 3 hours prior to surgery (4:30) with a maximum of 20 ounces. - No food from midnight until time of surgery Take the following medications with a SIP of water the morning of surgery: NEBIVOLOL, LEVOTHYROXINE. GABAPENTIN, INHALER IF NEEDED DO NOT STOP ANY OF YOUR OTHER PRESCRIPTION MEDICATIONS PRIOR TO SURGERY EXCEPT THE FOLLOWING Medications to discontinue per physician: VITAMINS/SUPPLEMENTS Date to take last dose: 05/26/22 Please no make-up, nail german, hairspray, perfume, deodorant, or body powder the day of surgery. No jewelry (including any body piercings) or valuables the day of surgery, leave them at home. Please take a shower or bath the night before, or the morning of, surgery with an antibacterial soap. Wear comfortable, loose fitting clothing. - Jewelry must be removed prior to entering the operating room. Rings and piercings that are not removed may be cut off. - The hospital will not accept responsibility for valuables. - Please leave all valuables, including medications, at home the day of surgery. If you are going home after surgery, a licensed haul truck driver must drive you home. - NO public transportation without another adult if you receive anesthesia. - We recommend that an adult stay with you for 24 hours following discharge. - We also recommend that you do not drive, make important decision, drink alcoholic beverages, or take any drugs that were not prescribed by your health care provider for at least 24 hours after your discharge time. Follow any additional instructions given to you from your surgeon. If you or anyone in your household have experienced Covid symptoms in the past week, please notify your surgeon or the nurse liaison at the phone number below for possible testing. Telephone instructions given to KADY GALLAGHER and asked if any additional questions and then verbalized understanding. Patient advised to call surgeon office or pre surgery nurse liaison [phone] if any additional questions.
[2022-05-23 14:55] VITALS: BMI 40.2
[2022-05-30] MEDS: ACETAMINOPHEN 500 MG TABLET 1000 MG PO (09:00)
--- NOTE | 2022-05-30 09:14 | WPDANESEPPF ---
Anes - Initial Pre Proc Eval Procedure: Operation Date: 05/30/22 10:30 Proposed Procedures p Right Thumb Carpal Metacarpal Arthroplasty - Juan Jose Morales MD Date/Time: 05/30/22 09:14 Surgeon: Juan Jose Morales MD Pre Op Diagnosis: right thumb CMC arthritis Patient Data Age: 56 Gender: F Height: 1.57 m Weight: 99.8 kg Allergies Allergy/AdvReac Type Severity Reaction Status Date / Time codeine AdvReac Mild Nausea Verified 05/30/22 08:46 Home Medications Medication Instructions Recorded Confirmed Type calcium carbonate 600 mg calcium 600 mg PO BID 07/29/19 05/30/22 History (1,500 mg) tablet (Calcium) cyanocobalamin (vitamin B-12) 500 500 mcg PO DAILY 07/29/19 05/30/22 History mcg tablet (Vitamin B-12) garlic 1,000 mg capsule 1,000 mg PO DAILY 07/29/19 05/30/22 History lactobacillus combination no.8 3 3,000 mmu cells PO DAILY 07/29/19 05/30/22 History billion cell capsule (Adult Probiotic) melatonin 5 mg tablet 5 mg PO HS PRN sleep 07/29/19 05/30/22 History multivitamin (Daily Multi-Vitamin 1 tablet PO DAILY 07/29/19 05/30/22 History tablet) pantoprazole 40 mg tablet,delayed 40 mg PO QAM #90 tabs 02/03/20 05/30/22 Rx release (Protonix) levothyroxine 125 mcg tablet 125 mcg PO DAILY #90 tabs 09/21/21 05/30/22 Rx montelukast 10 mg tablet 10 mg PO DAILY #60 tabs 12/12/21 05/30/22 Rx albuterol sulfate 2.5 mg/3 mL 2.5 mg (3 mL) inhalation Q4-6H PRN 01/14/22 05/24/22 Rx (0.083 %) solution for nebulization shortness of breath or wheezing #180 mL nebulizer accessories #1 ea 01/14/22 05/24/22 Rx nebivolol 5 mg tablet (Bystolic) 5 mg PO DAILY #90 tabs 02/21/22 05/30/22 Rx celecoxib 200 mg capsule (Celebrex) 200 mg PO BID #60 caps 02/27/22 05/30/22 Rx gabapentin 300 mg capsule 300 mg PO TID #90 caps 02/27/22 05/30/22 Rx zolpidem 5 mg tablet (Ambien) 5 mg PO QHS #30 tabs 03/25/22 05/30/22 Rx famotidine 40 mg tablet 40 mg PO HS 05/23/22 05/30/22 History phentermine 37.5 mg tablet 37.5 mg PO DAILY 05/23/22 05/30/22 History semaglutide 3 mg tablet (Rybelsus) 3 mg PO DAILY 05/23/22 05/30/22 History Patient hx anesthesia problems: post op nausea/vomiting and other (slow to awaken) Family hx anesthesia problems: none Results Review: All pre-operative results and documents have been reviewed as part of the pre-operative evaluation. [facility] Past Medical History Medical History Abnormal MRI, lumbar spine Adult BMI 34.0-34.9 kg/sq m Arthritis of carpometacarpal (CMC) joint of both thumbs Asthma BMI 28.0-28.9,adult BMI 30.0-30.9,adult BMI 31.0-31.9,adult BMI 35.0-35.9,adult Bronchitis COVID-19 Essential (primary) hypertension Foot arthropathy Hypercholesteremia Hypothyroidism Low back pain with right-sided sciatica Migraines Nail fungus Primary osteoarthritis involving multiple joints Vitamin D deficiency Surgical History Surgical History H/O: hysterectomy History of tubal ligation Hx of cholecystectomy Family History Family History Father COPD (chronic obstructive pulmonary disease) CHF (congestive heart failure) Tobacco abuse Mother Primary cancer of bone marrow Sibling Diabetes mellitus Other Family history of Alzheimer's disease Family history of chronic obstructive pulmonary disease Family history of malignant neoplasm of bone Family history of malignant neoplasm of breast Hypertension Social History Social History Smoking status: Never smoker Second hand tobacco smoke exposure: Yes Alcohol intake: never Substance use: never Substance use type: does not use Living arrangements: with family Occupation/Education: occupation 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
[2022-05-30] MEDS: LACTATED RINGERS 1,000 ML 30 ML IV CONT (09:15)
[2022-05-30 09:30] VITALS: BP 138/87; PULSE 57; RESP 16; TEMP 36.4; O2SAT 99
[2022-05-30 09:30] LABS: Glucose Point of Care 100 mg/dl (65-105)
--- NOTE | 2022-05-30 10:03 | SUR.PREOP ---
0945- DR. CACERES TO SEE PT IN PRE OP. PT HAD A FALL YESTERDAY AT HOME AND WENT TO URGENT CARE. PT HAS SMALL SORE ON RT ELBOW AND KNEE. PT COULD NOT WALK INTO PRE OP THIS MORNING. CAME IN BY WHEELCHAIR AND CANE. DR. CACERES SPOKE WITH PT AND CANCELLED PROCEDURE FOR THE DAY D/T INJURY. PT TO RESCHEDULE AFTER FALL RECOVERY.
--- NOTE | 2022-05-30 10:05 | WPDHPUPDATE1 ---
History and Physical Update Update Date/Time: 05/30/22 10:05 Patient had a mishap yesterday. She stepped in the PE of her 10-week-old puppy on a hardwood floor slipped and fell injuring her left knee and right forearm. She has an abrasion proximal aspect of right forearm which is fairly superficial but more importantly she has a significant MCL injury left knee making it difficult for her to ambulate. Out of an abundance of caution and concern for her falling in the postop period and causing herself more injury, we decided to postpone this elective procedure for approximally four weeks to give her a chance to rehab. I did tell her that I would send her prescription for tramadol which she can take with her Tylenol. She is already on Celebrex which should help as well. She has an appointment this coming for suture removal in her left thumb from a different injury. She will have a formal knee evaluation and therapy ordered at that point.
== END 2022-05-30 10:21 | disposition home or self-care (01) ==
PROVIDERS: PCP Family Medicine; Visit Provider Orthopaedic Surgery
DX: M18.11 Unilateral primary osteoarthritis of first carpometacarpal joint, right hand (principal); Z53.8 Procedure and treatment not carried out for other reasons; T14.90XA Injury, unspecified, initial encounter; W18.30XA Fall on same level, unspecified, initial encounter
CPT/HCPCS: 82948; 99214; A9270; G0463; J7120

== ENCOUNTER 2022-06-27 00:14 | Day surgery (SDC) | payer OTHER, SELFPAY ==
[2022-06-21 11:44] VITALS: BMI 39.3
--- NOTE | 2022-06-21 11:53 | PC.NURSE ---
Report to the Outpatient Waiting Room, entrance under the green pavilion located off [facility], at time 0600 on date 06/27/22. Planned Procedure Time: 0730. Time changes happen often and if your time is changed the preop area will call you the afternoon before. - You and your visitor will be asked to self-screen and do not enter if you have any COVID symptoms. - Only one visitor is requested with a max of two and NO children visitors are allowed at this time. - The patient visitor may be requested to leave or wait in car when not with patient due to distancing restrictions. - A mask is optional within the hospital at this time. Patients may have clear liquids (water, carbonated beverages, clear teas, apple juice) until 3 hours prior to surgery with a maximum of 20 ounces. - No food from midnight until time of surgery Take the following medications with a SIP of water the morning of surgery: CARVEDILOL, LEVOTHYROXINE, LIOTHYRONINE, GABAPENTIN DO NOT STOP ANY OF YOUR OTHER PRESCRIPTION MEDICATIONS PRIOR TO SURGERY EXCEPT THE FOLLOWING Medications to discontinue per physician: VITAMINS/SUPPLEMENTS Date to take last dose: 06/23/22 Please no make-up, nail paraguayan, hairspray, perfume, deodorant, or body powder the day of surgery. No jewelry (including any body piercings) or valuables the day of surgery, leave them at home. Please take a shower or bath the night before, or the morning of, surgery with an antibacterial soap. Wear comfortable, loose fitting clothing. - Jewelry must be removed prior to entering the operating room. Rings and piercings that are not removed may be cut off. - The hospital will not accept responsibility for valuables. - Please leave all valuables, including medications, at home the day of surgery. If you are going home after surgery, a licensed laundry route driver must drive you home. - NO public transportation without another adult if you receive anesthesia. - We recommend that an adult stay with you for 24 hours following discharge. - We also recommend that you do not drive, make important decision, drink alcoholic beverages, or take any drugs that were not prescribed by your health care provider for at least 24 hours after your discharge time. Follow any additional instructions given to you from your surgeon. If you or anyone in your household have experienced Covid symptoms in the past week, please notify your surgeon or the nurse liaison at the phone number below for possible testing. Telephone instructions given to KADY GALLAGHER and asked if any additional questions and then verbalized understanding. Patient advised to call surgeon office or pre surgery nurse liaison [phone] if any additional questions.
[2022-06-27] VITALS (10 sets, daily range): BP systolic 110–135; BP diastolic 60–97; PULSE 56–69; RESP 12–22; TEMP 36.2–36.7; O2SAT 95–100
--- NOTE | ~2022-06-27 | XR_ITS ---
XR finger 1st RT min 2V 06/27/2022 09:20 Indication: Right thumb postop Procedure: 4 views right first finger Comparison: 03/29/2022 Findings: There are postoperative changes consistent with resection of the trapezium. There is polyar ticular osteoarthritis. There is soft tissue gas in the region of carpectomy. There is overlying fibe rglass cast. Impression: 1: Postoperative changes consistent with resection of the trapezium. Reviewed, dictated and finalized at location B. Impression: 1: Postoperative changes consistent with resection of the trapezium.
[2022-06-27] MEDS: ACETAMINOPHEN 500 MG TABLET 1000 MG PO (06:28)
[2022-06-27] MEDS: LACTATED RINGERS 1,000 ML 30 ML IV CONT ×2 (06:30→09:27)
[2022-06-27] MEDS: KETOROLAC 15 MG/ML VIAL (*BKC) IV PUSH (06:43)
--- NOTE | 2022-06-27 06:43 | P.PNAN_ITS ---
Anes - Initial Pre Proc Eval Procedure: Operation Date: 06/27/22 07:30 Proposed Procedures p Right Thumb Carpal Metacarpal Arthroplasty - Juan Jose Morales MD Date/Time: 06/27/22 06:43 Surgeon: Juan Jose Morales MD Pre Op Diagnosis: right thumb cmc arthritis Patient Data Age: 56 Gender: F Height: 1.57 m Weight: 97.6 kg Allergies Allergy/AdvReac Type Severity Reaction Status Date / Time tramadol AdvReac Severe nausea, Verified 06/27/22 06:18 dizziness codeine AdvReac Mild Nausea Verified 06/27/22 06:18 Home Medications Medication Instructions Recorded Confirmed Type calcium carbonate 600 mg calcium 600 mg PO BID 07/29/19 06/27/22 History (1,500 mg) tablet (Calcium) cyanocobalamin (vitamin B-12) 500 500 mcg PO DAILY 07/29/19 06/27/22 History mcg tablet (Vitamin B-12) garlic 1,000 mg capsule 1,000 mg PO DAILY 07/29/19 06/27/22 History lactobacillus combination no.8 3 3,000 mmu cells PO DAILY 07/29/19 06/27/22 History billion cell capsule (Adult Probiotic) melatonin 5 mg tablet 5 mg PO HS PRN sleep 07/29/19 06/27/22 History multivitamin (Daily Multi-Vitamin 1 tablet PO DAILY 07/29/19 06/27/22 History tablet) pantoprazole 40 mg tablet,delayed 40 mg PO QAM #90 tabs 02/03/20 06/27/22 Rx release (Protonix) albuterol sulfate 2.5 mg/3 mL 2.5 mg (3 mL) inhalation Q4-6H PRN 01/14/22 06/27/22 Rx (0.083 %) solution for nebulization shortness of breath or wheezing #180 mL nebulizer accessories #1 ea 01/14/22 06/27/22 Rx famotidine 40 mg tablet 40 mg PO HS 05/23/22 06/27/22 History phentermine 37.5 mg tablet 37.5 mg PO DAILY 05/23/22 06/27/22 History carvedilol 12.5 mg tablet 12.5 mg PO Q12H #180 tabs 06/02/22 06/27/22 Rx celecoxib 200 mg capsule (Celebrex) 200 mg PO BID #180 caps 06/02/22 06/27/22 Rx gabapentin 300 mg capsule 300 mg PO TID #270 caps 06/02/22 06/27/22 Rx montelukast 10 mg tablet 10 mg PO DAILY #90 tabs 06/02/22 06/27/22 Rx zolpidem 5 mg tablet (Ambien) 5 mg PO QHS #90 tabs 06/02/22 06/27/22 Rx levothyroxine 100 mcg capsule 100 mcg PO DAILY 06/21/22 06/27/22 History liothyronine 25 mcg tablet 25 mcg PO DAILY 06/21/22 06/27/22 History metformin 500 mg tablet 500 mg PO DAILY 06/21/22 06/27/22 History Patient hx anesthesia problems: post op nausea/vomiting Family hx anesthesia problems: none Results Review: All pre-operative results and documents have been reviewed as part of the pre- operative evaluation. [facility] Past Medical History Medical History Abnormal MRI, lumbar spine Adult BMI 34.0-34.9 kg/sq m Arthritis of carpometacarpal (CMC) joint of both thumbs Asthma BMI 28.0-28.9,adult BMI 30.0-30.9,adult BMI 31.0-31.9,adult BMI 35.0-35.9,adult BMI 39.0-39.9,adult Bronchitis COVID-19 Essential (primary) hypertension Foot arthropathy Hypercholesteremia Hypothyroidism Low back pain with right-sided sciatica Migraines Nail fungus Primary osteoarthritis involving multiple joints Skin lesion of left ear Vitamin D deficiency Surgical History Surgical History H/O: hysterectomy History of tubal ligation Hx of cholecystectomy Family History Family History Father COPD (chronic obstructive pulmonary disease) CHF (congestive heart failure) Tobacco abuse Mother Primary cancer of bone marrow Sibling Diabetes mellitus Other Family history of Alzheimer's disease Family history of chronic obstructive pulmonary disease Family history of malignant neoplasm of bone Family history of malignant neoplasm of breast Hypertension Social History Social History (Reviewed 06/21/22 @ 09:35 by RAVINDER Danielson Smoking status: Never smoker Second hand tobacco smoke exposure: Yes Alcohol intake: never Substance use: never Substance use type: does not use Living arrangements: with family Occupation/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 Informed Consent: The patient's anesthetic plan and its attendant risks and benefits were discussed with the patient/family/POA. Questions were solicited and answers provided to the satisfaction of the patient/family/POA.
[2022-06-27 06:45] LABS: Glucose Point of Care 98 mg/dl (65-105)
[2022-06-27] MEDS: SCOPOLAMINE 1.5 MG PATCH TRANSDERM (07:04)
--- NOTE | 2022-06-27 07:14 | WPDHPUPDATE1 ---
History and Physical Update Update Date/Time: 06/27/22 07:14 History and Physical has been reviewed, including an updated exam of the patient. There are NO changes in the patient's condition. Risks, benefits, and alternatives have been discussed and questions answered. Patient agrees to proceed with procedure.
--- NOTE | 2022-06-27 07:16 | WPDANESPNB ---
Anes - Peripheral Nerve Block Date/Time: 06/27/22 07:16 I have discussed with the patient/family/POA the placement of a peripheral nerve block for post-operative pain management, including associated risks, benefits, complications, and side effects. Alternative methods of post-operative analgesia were detailed. Questions were solicited and answers provided to the satisfaction of the patient/family/POA. Time-Out: A pre-procedural Time-Out was completed immediately before starting the procedure and confirmed: Patient Identification, Site, Procedure, Patient Position and the Availability of Requisite Equipment. Clinical Indications: Acute post-operative pain management requested by the operative surgeon. Nerve Block Insertion Note Anes-nerve block: supraclavicular right Patient position: supine Skin prep: chlorhexidine Needle: 22 gauge, stimulating, insulated echogenic needle. Needle length: 50 mm Technique: ultrasound Injectate: bupivacaine 0.5% with epi 5 mcg/ml (30cc- no epi) Observations: tolerated well Complications: none Procedure start time:: 719 Procedure end time:: 723
[2022-06-27] MEDS: ceFAZolin 2 GM/D5W 50 ML 2 GM/50 ML BAG IVPB (07:29)
[2022-06-27] MEDS: LIDOCAINE HCL 1% LOCAL INJ 20 ML VIAL 10 ML INFILTRATE (07:57)
[2022-06-27 09:18] LABS: Glucose Point of Care 107 mg/dl (65-105)
--- NOTE | 2022-06-27 09:22 | W.PM.PROC2 ---
Procedure Note - Detailed Date of Procedure 06/27/22 Pre-op Diagnosis right thumb cmc arthritis Post-op Diagnosis Same Procedure Performed Right thumb CMC suspension arthroplasty Surgeon Juan Jose Morales MD Balancing Machine Operator Lior Hennessy Anesthesia General and Regional Description of Procedure The patient was identified proper site identified. In the preop holding area the anesthesia team performed a right upper extremity block. She was then taken to the operating room transferred to the OR table placing her supine taking care to pad the torso and extremities. After general anesthetic induction and intubation, a nonsterile tourniquet was placed high on the right arm. The right upper extremity was prepped and draped in usual sterile fashion. Extremity was exsanguinated and tourniquet was inflated to through 250 mmHg remaining up for approximately 61 minutes. A longitudinal incision was made over the FCR tendon curving radially at the base of the thenar musculature. Subcutaneous tissue bluntly dissected protecting neurovascular structures. A slip of the APL which inserted into the thenar musculature was released and marked for later repair. The thenar musculature was elevated up off of the carpus and the trapezium identified. While protecting the FCR, a trapeziectomy was performed. The a ulnar-sided distally-based 8 cm slip of FCR was then developed hand used to create a sling weaving the tendon slip between the FCR tendon and the APL tendon securing it to itself with 3-0 Ethibond suture. The EPL tendon was advanced on itself and also secured with 3-0 Ethibond suture seating the sling in the trapeziectomy site. This allowed the thumb to sit very nicely in a position of function. The EPB tendon was then reefed also with 3-0 Ethibond taking up the slack in that structure. The wound was irrigated with sterile antibiotic solution. The wrist capsule and thenar musculature were tacked back down with 4-0 Monocryl. The slip of the EPL was reattached to the thenar musculature with 3-0 Ethibond. Skin was closed with 4-0 Monocryl and 4-0 Prolene subcuticular stitch. Steri-Strips were applied. Sterile dressings applied and the tourniquet was released. Well-padded thumb spica splint was fashioned. The patient tolerated procedure well . She was awakened extubated and taken to recovery area in stable condition. There were no known intraoperative complications. Estimated blood loss was negligible. Perioperative antibiotics were administered. Estimated Blood Loss 2 Tourniquet Time 61 Drains No Packing No Pathology None sent Complications No immediate complications Condition Stable Disposition PACU [facility] Billing Surgery - Charge Forward: Surgery Billing ([id number])
[2022-06-27] MEDS: ONDANSETRON INJ 4 MG/2 ML VIAL IV PUSH (09:23)
[2022-06-27] MEDS: diphenhydrAMINE HCl INJ 50 MG/ML VIAL 25 MG IV PUSH (09:40)
== END 2022-06-27 11:40 | disposition home or self-care (01) ==
PROVIDERS: PCP Family Medicine; Visit Provider Orthopaedic Surgery
PROC: (CPT 25447; principal; 2022-06-27 07:30)
DX: M18.11 Unilateral primary osteoarthritis of first carpometacarpal joint, right hand (principal); G89.18 Other acute postprocedural pain; I10 Essential (primary) hypertension; E78.00 Pure hypercholesterolemia, unspecified; E03.9 Hypothyroidism, unspecified; E55.9 Vitamin D deficiency, unspecified; J45.909 Unspecified asthma, uncomplicated; E66.9 Obesity, unspecified; Z68.39 Body mass index [BMI] 39.0-39.9, adult; Z79.51 Long term (current) use of inhaled steroids; Z79.84 Long term (current) use of oral hypoglycemic drugs
CPT/HCPCS: 25447; 64415; 73140; 82948; A4248; A4565; A9270; J0690; J1100; J1200; J1885; J2003; J2250; J2405; J2704; J3010; J7120

== ENCOUNTER 2022-08-22 14:30 | Outpatient (RCR) | payer OTHER, SELFPAY ==
--- NOTE | 2022-07-19 14:14 | OTOPEVAL1 ---
Assessment and note entered by Chilango Ball, OTR/L, CHT Evaluation Information Assessment Status Evaluation Diagnosis s/p right thumb CMC arthroplasty Onset 06/27/22 Subjective Information Patient has been immobilized surgery 3 weeks ago. She comes in today in a removable thumb spica and steri strips still intact. 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 Reporting that she doesn't use this hand for ADLs and that her helps her with all 2-handed tasks, such as washing her hair. Reported Pain Level Pain Score 3: Self Report Additional Pain Score Comments 3-4/10 with active ROM. No pain at rest. Assessment OT Clinical Summary Patient referred to outpatient hand therapy 3 weeks following CMC arthroplasty with reduced functional use of the right hand due to deficits with stiffness, weakness, and pain. She will benefit from skilled OT to maximize functional ROM and strength of her right dominant hand. Plan of Care Interventions Therapeutic Exercise,Manual Therapy,Therapeutic Activities,Hot Pack/Cold Pack,Ultrasound,Paraffin OT Services Indicated Yes Treatment Frequency and 2x/week for 5 weeks Duration These treatments will address the objective and functional deficits as defined above. The patient will be advanced safely and appropriately in order for the patient to progress towards his/her prior level of function. Additional exercises will be introduced and as well as a comprehensive home exercise program upon discharge, if needed, ?to ensure carryover of functional gains achieved in the clinic. This treatment plan has been reviewed and agreement upon by the patient.
--- NOTE | 2022-08-22 15:16 | OTOPDC ---
Assessment and note entered by Chilango Ball, OTR/L, CHT Evaluation Information Assessment Status Discharge Diagnosis s/p right thumb CMC arthroplasty Onset 06/27/22 Subjective Information Patient is 8 weeks post op. She reports many functional changes/improvements since the start of care. She states that her is no longer needing to help her wash her hair. She is using her hand for more tasks, with the brace on, she is able to pour tea from her pitcher, and curl her hair. She is still unable to hook her bra with the brace on. Reporting no pain and has had no pain throughout therapy. She has done very well with therapy. Compliant with HEP. ROM has returned to functional limits. Some end- range tightness with wrist flexion and MCP flexion of the thumb. Superintendent Building strength 29 lbs. Lateral pinch 1 lb. Palmar pinch 0 lb. Tip pinch 0 lb. Assessment OT Clinical Summary Patient has progressed to functional ROM of the right UE/hand/thumb. The only functional deficits she is reporting are any activities that require pinch strength. She is currently independent with strengthening HEP for these residual strength deficits. No further skilled OT indicated at this time. Plan of Care OT Services Indicated No
== END 2022-08-23 16:07 | disposition home or self-care (01) ==
LOC: ANHOT 14:30
PROVIDERS: PCP Family Medicine; Visit Provider Orthopaedic Surgery
DX: Z48.89 Encounter for other specified surgical aftercare (principal); Z98.890 Other specified postprocedural states
CPT/HCPCS: 97018; 97110; 97165

== ENCOUNTER → 2022-10-13 09:48 | Outpatient (CLI) | payer OTHER, SELFPAY ==
--- NOTE | ~2022-10-13 | MR_ITS ---
MRI of the left knee Clinical history: Pain and swelling Technique: Coronal proton density and proton density-weighted images, sagittal proton-density and T2 fat-sat images, and axial proton-density fat-saturated images were acquired. Findings: Anterior and posterior cruciate ligaments are intact. Medial collateral ligament and the la teral collateral ligament complex are intact. There is mild soft tissue edema about the MCL. Popliteu s tendon is intact. Medial and lateral menisci are intact, without evidence of tear. There is mild chondral thinning throughout the medial femoral condyle. Lateral compartment articular cartilage is relatively well preserved. There is high-grade chondral malacia at the patellar apex. Fe moral trochlear cartilage is well preserved. Extensor mechanism is intact. There is minimal joint effusion. No Pelayo's cyst. Impression: Possible grade 1 MCL sprain versus reactive soft tissue edema. 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 Reviewed, dictated and finalized at [facility]. Impression: Possible grade 1 MCL sprain versus reactive soft tissue edema. 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
== END ==
PROVIDERS: PCP Family Medicine; Visit Provider Nurse Practitioner Family
DX: S89.92XA Unspecified injury of left lower leg, initial encounter (principal); M25.562 Pain in left knee; M94.262 Chondromalacia, left knee
CPT/HCPCS: 73721

== ENCOUNTER 2022-10-29 08:09 | Outpatient (CLI) | payer OTHER, SELFPAY ==
[2022-10-29 08:47] LABS: Hematocrit 41.4 % (37.0-47.0); Hemoglobin 13.4 g/dL (12.0-15.0); Mean Corpuscular HGB Conc 32.4 g/dl (32-36); Mean Corpuscular Hemoglobin 28.7 pg (26-34); Mean Corpuscular Volume 88.7 fl (80-100); Mean Platelet Volume 10.7 fl (7.4-10.4); Platelet Count Result 266 k/mm3 (150-375); Red Blood Count 4.67 M/mm3 (4.2-5.4); Red Cell Distribution Width 13.2 % (11.5-14.5); White Blood Count 7.9 K/mm3 (4.5-10.0)
[2022-10-29 08:55] LABS: Anion Gap 3 mmol/L (8-16); Blood Urea Nitrogen 13 mg/dL (7-17); Calcium 9.1 mg/dL (8.4-10.2); Carbon Dioxide 28 mmol/L (22-30); Chloride 105 mmol/L (98-107); Cholesterol 212 mg/dL (0-200); Estimated Glomerular Filt Rate > 60; Glucose 93 mg/dL (65-110); HDL Direct 51 mg/dL; Potassium 4.1 mmol/L (3.4-5.0); Sodium 136 mmol/L (137-145); Triglycerides 63 mg/dL (<150)
[2022-10-29 09:05] LABS: LDL Cholesterol Direct 115 mg/dL
[2022-10-29 09:24] LABS: Thyroid Stimulating Hormone < 0.015 uIU/mL (0.465-4.680)
[2022-10-29 09:30] LABS: Free T4 Free Thyroxine 1.27 ng/mL (0.78-2.19)
== END 2022-10-29 08:10 | disposition home or self-care (01) ==
PROVIDERS: PCP Family Medicine; Visit Provider Family Medicine
DX: R60.9 Edema, unspecified (principal); E03.9 Hypothyroidism, unspecified; Z13.220 Encounter for screening for lipoid disorders; E55.9 Vitamin D deficiency, unspecified
CPT/HCPCS: 36415; 80048; 80061; 82306; 84439; 84443; 85027

== ENCOUNTER → 2022-12-29 08:06 | Outpatient (CLI) | payer OTHER, SELFPAY ==
--- NOTE | ~2022-12-29 | XR_ITS ---
Lumbosacral Spine: AP and lateral views Clinical History: Pain COMPARISON: 02/03/2021 Findings: The normal lordotic curve is maintained. No fracture identified. 7 mm anterolisthesis of L4 over L5 is present. There are moderate facet joint degenerative changes throughout the lumbar spine. There is moderate degenerative disc narrowing at L1-L2. The sacroiliac joints are normally outlined. Impression: 7 mm anterolisthesis of L4 over L5, essentially unchanged. Mild degenerative spondylosis, unchanged. Reviewed, dictated and finalized at location M. Impression: 7 mm anterolisthesis of L4 over L5, essentially unchanged. Mild degenerative spondylosis, unchanged.
== END ==
PROVIDERS: Visit Provider Nurse Practitioner Family
DX: M43.06 Spondylolysis, lumbar region (principal)
CPT/HCPCS: 72100